=== PATIENT | male | born 1955 | race Caucasian/White ===

== ENCOUNTER → 2020-10-05 | Outpatient (CLI) | payer MEDICARE, OTHER | END | disposition home or self-care (01) | LOC: LABWHC1 08:56 | PROVIDERS: ATTEND Otolaryngology | DX: J30.89 Other allergic rhinitis (principal) | CPT/HCPCS: 36415 ==

== ENCOUNTER → 2021-07-27 | Outpatient (CLI) | payer MEDICARE, OTHER ==
--- NOTE | 2021-07-27 16:17 | CONS ---
CONSULTATION DATE OF SERVICE: 07/27/2021 This 65-year-old gentleman has been evaluated in Sleep Center for obstructive sleep apnea-hypopnea syndrome. HISTORY OF PRESENT ILLNESS/SLEEP-WAKE EVALUATION: Patient was diagnosed with obstructive sleep apnea about 30 years ago and he at present is trying to use his very old CPAP unit, which is about 30 years old. His sleep schedule is from 11 p.m. to 6 a.m. He wakes up from sleep while using his machine 4 times with 2 episodes of nocturia. Sometimes he has problems with falling asleep and sleeps on the chair. No history of hypnagogic hallucinations, sleep paralysis or cataplexy. He does snore while using the machine. [place] Sleepiness Scale is 3. He may take naps at 10 a.m. and 3 p.m. No history of vivid dreams during naps. PAST MEDICAL HISTORY: Positive for hypertension, diabetes mellitus, hyperlipidemia. PAST SURGICAL HISTORY: UPPP, tonsillectomy, surgery for nasal septum deviation, hernia repair, eye surgery. CURRENT MEDICATIONS: 1. Losartan 100 mg twice a day. 2. Metoprolol 25 mg once a day. 3. Amlodipine 5 mg once a day. 4. Hydrochlorothiazide 12.5 mg once a day. 5. Lipitor 10 mg once a day. 6. Insulin pump. FAMILY HISTORY: Hypertension. SOCIAL HISTORY: Negative for smoking. Alcohol consumption occasional. REVIEW OF SYSTEMS: No fevers. No double vision. No recent chest pain. No shortness of breath. No abdominal pain. No bleeding episodes. No blood in the urine. No seizure episodes. Snoring and multiple awakenings while using his CPAP unit. CPAP unit is extremely old. PHYSICAL EXAMINATION: GENERAL: Pleasant patient without distress. VITAL SIGNS: BP 154/77, HR 56, RR 15, height 5 feet 9 inches, weight 192, body mass index 28.3, temperature 97.9, oxygen saturation at room air 99%. HEENT: PERRLA, EOMI, evaluation of oropharynx showed tongue protrudes midline. Extremely low position of soft palate; Mallampati IV. NECK: Supple, no JVD. Thyroid is not palpable. Neck measures 16 inches in circumference. LUNGS: Clear to percussion and to auscultation. Good air exchange. No wheezing or rhonchi. HEART: S1, S2 regular. No murmurs, gallops, or rubs. ABDOMEN: Soft and nontender. Bowel sounds are present. No organomegaly appreciated. EXTREMITIES: No clubbing or cyanosis. TIER LIFT TRUCK OPERATOR: Awake, alert, and oriented X3. Cranial nerves 2 to 7 intact. There is no fasciculation or atrophy. noted. No focal deficits observed. IMPRESSION: 1. Obstructive sleep apnea-hypopnea syndrome for about 30 years. Results of sleep studies are not available. The patient still snores and wakes up from sleep multiple times. He has extremely low position of soft palate, Mallampati IV; obstructive sleep apnea-hypopnea syndrome. 2. Overweight; body mass index 28.3. 3. Diabetes mellitus, on treatment with insulin pump. 4. Hypertension. 5. Hyperlipidemia. 6. Status post UPPP, tonsillectomy and surgery for nasal septum deviation which was done after the previous sleep study many years ago. PLAN: 1. Polysomnography for evaluation of patient's breathing during sleep. 2. CPAP/BiPAP titration if sleep study confirms obstructive sleep apnea-hypopnea syndrome. 3. Preferable position during sleep on the side. 4. No driving if patient feels any sleepiness. 5. I will see patient for follow up visit to explain results of testing and following plan. 6. Patient will get all necessary new equipment after the testing. At present, he cannot get any supplies without results of the testing Thank you very much for referring this patient for consultation. Sincerely, Richmond Rodríguez MD, PhD, FAASM Diplomat of [place] Board of Medical Specialties Sleep Medicine Board of [place] Board of Internal Medicine Heavy Cleaner of [facility] MMODL / NNEKAN: [id number] /
== END ==
LOC: SLEEP 13:19
PROVIDERS: ATTEND Internal Medicine
DX: G47.33 Obstructive sleep apnea (adult) (pediatric) (principal); E66.3 Overweight; E11.9 Type 2 diabetes mellitus without complications; I10 Essential (primary) hypertension; E78.5 Hyperlipidemia, unspecified; Z68.28 Body mass index [BMI] 28.0-28.9, adult; Z98.890 Other specified postprocedural states; Z79.899 Other long term (current) drug therapy; Z79.4 Long term (current) use of insulin; Z90.89 Acquired absence of other organs
CPT/HCPCS: 99211

== ENCOUNTER → 2022-01-11 | Outpatient (CLI) | payer MEDICARE, OTHER ==
--- NOTE | 2022-01-11 14:42 | SFUN ---
SLEEP CENTER FOLLOW UP NOTE DATE OF SERVICE: 01/11/2022 This 66-year-old gentleman has been followed in Sleep Center for treatment of obstructive sleep apnea-hypopnea syndrome. Recently the patient had a polysomnogram which showed that the patient has obstructive sleep apnea, and he had titration. During titration respiration was controlled. The patient received a new CPAP unit. Today is his first visit after he received his CPAP machine. The patient is able to use his CPAP equipment every night. He likes his machine and does not have significant problems related to mask or humidification. He started to use a cleaning system for the CPAP unit. [place] Sleepiness Scale today is 3, which is normal. I discussed the results of his sleep studies with the patient in detail. I checked his CPAP unit and reading from the machine. It is in automatic regimen. Range of the pressure is 6 to 12, average pressure 8.7 cm of water. Leak is 24.9 L/minute, which is borderline. Usage is 100% of nights for more than 4 hours, average 7 hours 51 minutes, which is great compliance. Apnea-hypopnea index is only 1.0, which is totally normal. I explained the results of all these readings and information from the machine to the patient in detail. MEDICATIONS: Insulin pump, losartan, metoprolol, amlodipine, hydrochlorothiazide, Lipitor. PHYSICAL EXAMINATION: GENERAL: Pleasant patient in no distress. VITAL SIGNS: BP 154/82, HR 54, RR 16, weight 190.2, height 5 feet 9 inches, oxygen saturation at room air 100%. HEENT: PERRLA, EOMI, evaluation of oropharynx showed tongue protrudes midline. Extremely low position of soft palate; Mallampati IV. NECK: Supple, no JVD. Thyroid is not palpable. LUNGS: Clear to percussion and to auscultation. Good air exchange. No wheezing or rhonchi. HEART: S1, S2 regular. No murmurs, gallops, or rubs. ABDOMEN: Soft and nontender. Bowel sounds are present. No organomegaly appreciated. EXTREMITIES: No clubbing or cyanosis. RECEPTION INTERVIEWER: Awake, alert, and oriented X3. Cranial nerves 2 to 7 intact. There is no fasciculation or atrophy. noted. No focal deficits observed. IMPRESSION: 1. Obstructive sleep apnea-hypopnea syndrome. Patient demonstrated 100% compliance with treatment, benefitting from treatment. Normal respiration on CPAP. 2. Diabetes mellitus, on treatment with insulin pump. 3. Hypertension. 4. Hyperlipidemia. 5. Status post UPPP, tonsillectomy and surgery for nasal septum deviation many years ago. PLAN: 1. I discussed with the patient the position of the machine during the night and position of the hose along with the necessity of making the humidifier dry in the morning. 2. Patient will continue to use PAP equipment every night for the whole night. 3. Sleep hygiene with regular time in bed for at least 7-1/2 to 8 hours. 4. Precautions related to driving. No driving if feeling sleepiness. 5. I will maintain all necessary prescription for PAP supplies including mask, tube, filters. 6. Watching weight. 7. Follow-up visit in 6 months or earlier if patient has any problems. Thank you very much for allowing me to participate in the management of your patient. Sincerely, Richmond Rodríguez MD, PhD, FAASM Diplomat of [place] Board of Medical Specialties Sleep Medicine Board of [place] Board of Internal Medicine Finishing Machine Tender of [facility] [place] MMODL / IJN: [id number] /
== END ==
LOC: SLEEP 11:02
PROVIDERS: ATTEND Internal Medicine
DX: G47.33 Obstructive sleep apnea (adult) (pediatric) (principal); E11.9 Type 2 diabetes mellitus without complications; I10 Essential (primary) hypertension; E78.5 Hyperlipidemia, unspecified; Z98.890 Other specified postprocedural states; Z96.41 Presence of insulin pump (external) (internal); Z90.89 Acquired absence of other organs; Z79.899 Other long term (current) drug therapy

== ENCOUNTER → 2022-08-02 | Outpatient (CLI) | payer MEDICARE, OTHER ==
--- NOTE | 2022-08-02 11:43 | P.PN ---
Subjective DATE: 08/02/2022 FOLLOW UP VISIT. Patient with obstructive sleep apnea hypopnea syndrome return to sleep center for follow-up visit. Information from previous visit have been reviewed. Patient is using PAP equipment every night for the whole night, getting PAP supplies in time. The patient does not have significant problems with the mask, PAP unit and humidification. [place] sleepiness scale is 5. I checked information from PAP unit. PAP unit pressure 6-12, average 7.6 cm H2O. Usage is 100 % for more then 4 hours, average 7.8 hours per night. Leak is 25.6 l/m, which is in acceptable range. Apnea Hypopnea Index is 0.9, which is normal. MEDICATIONS:1. Insulin pump 2. Metoprolol 25 mg twice a day 3. Amlodipine 10 mg once a day 4. Hydrochlorothiazide 12.5 mg once a day 5. Lipitor 20 mg once a day During physical exam: GENERAL: A pleasant patient without any distress. VITAL SIGNS: BP 157/80, HR 47, RR 12, weight 190.4, height 5 and 9 inches, body mass index 28.4, temperature 96.6, oxygen saturation at room air 95 % . HEENT: PERRLA, EOMI.low position of soft palate, Mallapati 4 . NECK: Supple. No JVD. LUNGS: Clear to percussion and to auscultation. Good air exchange. No wheezing or rhonchi. HEART: S1, S2 regular. ABDOMEN: Soft and nontender.[] EXTREMITIES: No clubbing or cyanosis. ARMOR RECONNAISSANCE SPECIALIST: Awake, alert, and oriented x3. No focal deficit. Impressions: 1. Obstructive sleep apnea-hypopnea syndrome. Patient demonstrated great compliance with treatment, benefiting from treatment. 2. Diabetes mellitus, on treatment with insulin pump. 3. Hyperlipidemia. 4. Hypertension. 5. Status post UPPP, tonsillectomy and surgery for nasal septum deviation may years ago. Plan: 1. Continue using PAP equipment every night for the whole night. 2. To change air filter at least 1-2 times per month. 3. PAP unit should stay lower then position of the head. 4. Advised patient to remove all remaining water from humidifier canister daily and make it dry after each usage. Refill canister with fresh distilled water before each usage. 5. Sleep hygiene with regular time in bed for at least 8 hours. 6. Precautions related to driving. No driving if feel any sleepiness. 7. I will maintain prescription for PAP supplies including mask, tube, filters. 8. Follow up visit in 6 months or earlier if patient has any problems. 9. Watching weight. Thank you very much for allowing me to participate in the management of your patient. Richmond Rodríguez MD, PhD, FAASM. Diplomat of [place] Board of Sleep Medicine, Sleep Medicine Board by [place] Board of Internal Medicine Project Geophysicist of [facility] [place]
== END ==
LOC: SLEEP 11:23
PROVIDERS: ATTEND Internal Medicine
DX: G47.33 Obstructive sleep apnea (adult) (pediatric) (principal); E11.9 Type 2 diabetes mellitus without complications; E78.5 Hyperlipidemia, unspecified; I10 Essential (primary) hypertension; Z99.89 Dependence on other enabling machines and devices; Z90.09 Acquired absence of other part of head and neck; Z98.890 Other specified postprocedural states; Z79.4 Long term (current) use of insulin

== ENCOUNTER → 2023-02-14 | Outpatient (CLI) | payer MEDICARE, OTHER ==
--- NOTE | 2023-02-14 11:48 | P.PN ---
Subjective DATE: 02/14/2023 FOLLOW UP VISIT. Patient with obstructive sleep apnea hypopnea syndrome return to sleep center for follow-up visit. Information from previous visit have been reviewed. Patient is using PAP equipment every night for the whole night, getting PAP supplies in time. The patient does not have significant problems with the mask, PAP unit and humidification. [place] sleepiness scale is 5, which is normal. I checked information from PAP unit and discussed it with patient. PAP unit pressure 6-12, average 7.8 cm H2O. Usage is 100 % for more then 4 hours, average 8.3 hours per night. Leak is 29.2 l/m, which is in acceptable range. Apnea Hypopnea Index is 0.9, which is normal. MEDICATIONS:1. Losartan 100 mg once a day 2. Metoprolol 25 mg twice a day 3. Lipitor 20 mg once a day 4. Spironolactone 50 mg once a day 5. Aspirin 81 mg once a day 6. Insulin pump During physical exam: GENERAL: A pleasant patient without any distress. VITAL SIGNS: BP 168/74, HR 50, RR 16, weight 188.2, BMI 26.5, temperature 98.1, oxygen saturation at room air 99 % . HEENT: PERRLA, EOMI.low position of soft palate, Mallapati 4 . NECK: Supple. No JVD. LUNGS: Clear to percussion and to auscultation. Good air exchange. No wheezing or rhonchi. HEART: S1, S2 regular. ABDOMEN: Soft and nontender.[] EXTREMITIES: No clubbing or cyanosis. STRAPPING MACHINE TENDER: Awake, alert, and oriented x3. No focal deficit. Impressions: 1. Obstructive sleep apnea-hypopnea syndrome. Patient demonstrated great compliance with treatment, benefiting from treatment. 2. Diabetes mellitus. 3. Hypertension. 4. Hyperlipidemia. 5. Status post UPPP, tonsillectomy and surgical treatment for nasal septum deviation.. Plan: 1. Continue using PAP equipment every night for the whole night. 2. To change air filter at least 1-2 times per month. 3. PAP unit should stay lower then position of the head. 4. Advised patient to remove all remaining water from humidifier canister daily and make it dry after each usage. Refill canister with fresh distilled water before each usage. 5. Sleep hygiene with regular time in bed for at least 8 hours. 6. Precautions related to driving. No driving if feel any sleepiness. 7. I will maintain prescription for PAP supplies including mask, tube, filters. 8. Watching weight. 9. Follow up visit in 6 months or earlier if patient has any problems. Thank you very much for allowing me to participate in the management of your patient. Richmond Rodríguez MD, PhD, FAASM. Diplomat of [place] Board of Sleep Medicine, Sleep Medicine Board by [place] Board of Internal Medicine Photographic Restorer of [facility] [place]
== END ==
LOC: SLEEP 11:21
PROVIDERS: ATTEND Internal Medicine
DX: G47.33 Obstructive sleep apnea (adult) (pediatric) (principal); E11.9 Type 2 diabetes mellitus without complications; I10 Essential (primary) hypertension; E78.5 Hyperlipidemia, unspecified; Z79.4 Long term (current) use of insulin; Z79.899 Other long term (current) drug therapy; Z98.890 Other specified postprocedural states; Z99.89 Dependence on other enabling machines and devices; Z79.82 Long term (current) use of aspirin; Z90.89 Acquired absence of other organs
CPT/HCPCS: 99212

== ENCOUNTER → 2023-08-22 | Outpatient (CLI) | payer MEDICARE, OTHER ==
--- NOTE | 2023-08-22 12:23 | P.PN ---
Subjective DATE: 08/22/2023 FOLLOW UP VISIT. Patient with obstructive sleep apnea hypopnea syndrome return to sleep center for follow-up visit. Information from previous visit have been reviewed. Patient is using PAP equipment every night for the whole night, getting PAP supplies in time. The patient does not have significant problems with the mask, PAP unit and humidification. [place] sleepiness scale is 3, which is normal. I checked information from PAP unit. PAP unit pressure 6-12, average 7.8 cm H2O. Usage is 100 % for more then 4 hours, average 7.7 hours per night. Leak is 29 l/m, which is in acceptable range. Apnea Hypopnea Index is 0.9, which is normal. MEDICATIONS:1. Metoprolol 25 mg twice a day 2. Losartan 100 mg once a day 3. Insulin pump 4. Lipitor 20 mg once a day 5. Aspirin 81 mg once a day 6. Spironolactone 50 mg once a day During physical exam: GENERAL: A pleasant patient without any distress. VITAL SIGNS: BP 175/69, HR 51, RR 16 , weight 190.9, temperature 97.9, oxygen saturation at room air 99 % . HEENT: PERRLA, EOMI.low position of soft palate, Mallapati 4 . NECK: Supple. No JVD. LUNGS: Clear to percussion and to auscultation. Good air exchange. No wheezing or rhonchi. HEART: S1, S2 regular. ABDOMEN: Soft and nontender.[] EXTREMITIES: No clubbing or cyanosis. LINE HELPER: Awake, alert, and oriented x3. No focal deficit. Impressions: 1. Obstructive sleep apnea-hypopnea syndrome. Patient demonstrated great compliance with treatment, benefiting from treatment. 2. Hypertension. 3. diabetes mellitus. 4. hyperlipidemia. 5. status post UPPP, tonsillectomy and surgery for nasal septum deviation. Plan: 1. Continue using PAP equipment every night for the whole night. 2. To change air filter at least 1-2 times per month. 3. PAP unit should stay lower then position of the head. 4. Advised patient to remove all remaining water from humidifier canister daily and make it dry after each usage. Refill canister with fresh distilled water before each usage. 5. Sleep hygiene with regular time in bed for at least 8 hours. 6. Precautions related to driving. No driving if feel any sleepiness. 7. I will maintain prescription for PAP supplies including mask, tube, filters. 8. Follow up visit in 6 months or earlier if patient has any problems. 9. Watching weight. Thank you very much for allowing me to participate in the management of your patient. Richmond Rodríguez MD, PhD, FAASM. Diplomat of [place] Board of Sleep Medicine, Sleep Medicine Board by [place] Board of Internal Medicine Head Start Coordinator of [facility] [place]
== END ==
LOC: 3 N SLEEP 11:41
PROVIDERS: ATTEND Internal Medicine
DX: G47.33 Obstructive sleep apnea (adult) (pediatric) (principal); E11.9 Type 2 diabetes mellitus without complications; I10 Essential (primary) hypertension; E78.5 Hyperlipidemia, unspecified; Z79.4 Long term (current) use of insulin; Z79.899 Other long term (current) drug therapy; Z98.890 Other specified postprocedural states; Z90.89 Acquired absence of other organs; Z99.89 Dependence on other enabling machines and devices; Z79.82 Long term (current) use of aspirin
CPT/HCPCS: 99212

== ENCOUNTER → 2023-10-14 | Outpatient (CLI) | payer MEDICARE, OTHER ==
--- NOTE | 2023-10-14 10:47 | US ---
EXAMINATION TYPE: US prostate transrectal DATE OF EXAM: 10/14/2023 COMPARISON: NONE CLINICAL INDICATION: Male, 68 years old with history of N40.1 BENIGN PROSTATIC HYPERPLASIA WITH LOWER URIN; Patient denies any signs or symptoms This examination was performed using the transrectal probe. EXAM MEASUREMENTS: Gland Size: 3.7 x 1.9 x 5.0 cm Volume: 35.15 Predicted PSA: 4.2 Actual PSA (if available):2.12 Calcified central zone, bladder noted. IMPRESSION: No suspicious masses. MRI is more sensitive for identifying clinically significant prost ate cancer. Predicted PSA = volume x 0.12 ng/ml Calculated Volume = 0.5236 x L x W x H
== END | disposition home or self-care (01) ==
LOC: RADUSWWP 10:07
PROVIDERS: ATTEND Urology
DX: N40.1 Benign prostatic hyperplasia with lower urinary tract symptoms (principal)
CPT/HCPCS: 76872

== ENCOUNTER → 2024-04-15 | Outpatient (CLI) | payer MEDICARE, OTHER ==
[2024-04-15 11:23] VITALS: BP 151/79; PULSE 47; RESP 16; TEMP 98.3
--- NOTE | 2024-04-15 11:44 | P.PROGSL ---
Subjective DATE: 04/15/2024 FOLLOW UP VISIT. Patient with obstructive sleep apnea hypopnea syndrome return to sleep center for follow-up visit. Information from previous visit have been reviewed. Patient is using PAP equipment every night for the whole night, getting PAP supplies in time. The patient does not have significant problems with the mask, PAP unit and humidification. [place] sleepiness scale is 3, which is normal. I checked information from PAP unit. PAP unit pressure 5-12, average 8.4 cm H2O. Usage is 100% for more then 4 hours, average 8 hours per night. Leak is increased to 34.4 l/m. Apnea Hypopnea Index is 1.0, which is normal. MEDICATIONS:1. Flomax 2. Losartan 100 mg once a day 3. Lipitor 20 mg once a day 4. Insulin pump 5. Aspirin 81 mg once a day 6. Spironolactone 50 mg once a day During physical exam: GENERAL: A pleasant patient without any distress. VITAL SIGNS: Please see below. HEENT: PERRLA, EOMI.low position of soft palate, Mallapati 4 . NECK: Supple. No JVD. LUNGS: Clear to percussion and to auscultation. Good air exchange. No wheezing or rhonchi. HEART: S1, S2 regular. ABDOMEN: Soft and nontender.[] EXTREMITIES: No clubbing or cyanosis. FLANGE TURNER: Awake, alert, and oriented x3. No focal deficit. Impressions: 1. Obstructive sleep apnea-hypopnea syndrome. Patient demonstrated great compliance with treatment, benefiting from treatment. 2. Diabetes mellitus. 3. Hypertension. 4. Hyperlipidemia. 5. Status post tonsillectomy, UPPP and surgical treatment for nasal septal deviation. Plan: 1. Continue using PAP equipment every night for the whole night. 2. To change air filter at least 1-2 times per month. 3. PAP unit should stay lower then position of the head. 4. Advised patient to remove all remaining water from humidifier canister daily and make it dry after each usage. Refill canister with fresh distilled water before each usage. 5. Sleep hygiene with regular time in bed for at least 8 hours. 6. Precautions related to driving. No driving if feel any sleepiness. 7. I will maintain prescription for PAP supplies including mask, tube, filters. 8. Watching weight. 9. Follow up visit in 6 months or earlier if patient has any problems. Thank you very much for allowing me to participate in the management of your patient. Richmond Rodríguez MD, PhD, FAASM. Diplomat of [place] Board of Sleep Medicine, Sleep Medicine Board by [place] Board of Internal Medicine Manager Social Responsibility of [facility] [place] Objective - Vital Signs Vital Signs: Vital Signs Temp 98.3 F 04/15/24 11:21 Pulse 47 L 04/15/24 11:21 Resp 16 04/15/24 11:21 BP 151/79 04/15/24 11:21 Pulse Ox 99 04/15/24 11:21 FiO2 Intake & Output 04/14/24 04/15/24 04/15/24 18:59 06:59 18:59 Weight 85.735 kg
== END ==
LOC: 3 N SLEEP 10:50
PROVIDERS: ATTEND Internal Medicine
DX: G47.33 Obstructive sleep apnea (adult) (pediatric) (principal); E11.9 Type 2 diabetes mellitus without complications; I10 Essential (primary) hypertension; E78.5 Hyperlipidemia, unspecified; Z98.890 Other specified postprocedural states; Z90.89 Acquired absence of other organs; Z99.89 Dependence on other enabling machines and devices; Z79.899 Other long term (current) drug therapy; Z79.4 Long term (current) use of insulin
CPT/HCPCS: 99212